=== PATIENT | female | born 1980 | race Caucasian/White ===

== ENCOUNTER 2018-06-12 23:16 | Inpatient (IN) | payer OTHER ==
[~2018-06-12] VITALS: Ht 167.6 cm; Wt 129.7 kg
[2018-06-12 23:20] VITALS: BP_SYST 103
[2018-06-13] VITALS (15 sets, daily range): BP systolic 79–127
[2018-06-13 00:02] LABS: WHITE BLOOD COUNT (AUTO) 2.7 K/uL (4.8-10.8)
[2018-06-13 00:03] LABS: RED BLOOD CELL COUNT(AUTO) 1.74 MIL/uL (4.2-6.2)
[2018-06-13 00:04] LABS: HEMATOCRIT 19.4 % (36-48); HEMOGLOBIN 6.5 g/dL (12.0-16.0); MEAN CORPUSCULAR VOLUME 111 fL (79.0-98.0)
[2018-06-13 00:05] LABS: MEAN CORPUSCULAR HEMOGLOBIN 37 pg (27-31); MEAN CORPUSCULAR HGB CONC 34 % (32-36); PLATELET COUNT (AUTO) 75 K/uL (130-430); RED CELL DISTRIBUTION WIDTH 36.4 % (9.0-15.0)
[2018-06-13 00:20] LABS: CALCIUM 8.4 mg/dL (8.4-11.0); CREATININE 1.85 mg/dL (0.55-1.30); INR 1.9 (0.8-1.2); POTASSIUM 3.5 mmol/L (3.5-5.1); PROTHROMBIN TIME 19.1 SECS (9.5-12.5)
[2018-06-13 00:32] LABS: CORRECTED WHITE BLOOD COUNT 2.2 K/uL (4.5-11.0)
[2018-06-13 00:33] LABS: ATYPICAL LYMPHOCYTES % 0 % (0-0); BAND % (MANUAL) 6 % (0-6); LYMPHOCYTES % (MANUAL) 19 % (20-46); MONOCYTES % (MANUAL) 56 % (0-11)
[2018-06-13 00:36] LABS: BASOPHILS % (MANUAL) 0 % (0-2); EOSINOPHILS % (MANUAL) 6 % (0-7); METAMYELOCYTES % 6 % (0-0); MYELOCYTES % 2 % (0-0)
[2018-06-13 00:37] LABS: ALBUMIN 2.1 g/dL (3.4-4.8)
[2018-06-13] MEDS ORDERED: cefTRIAXone 1 GM IVPB PREMIX 50 ML IV ONE (00:45)
[2018-06-13] MEDS ORDERED: PRED20TA PO (01:18)
[2018-06-13] MEDS ORDERED: FURO-149 PO (01:18)
[2018-06-13] MEDS ORDERED: LEVO125T8 PO (01:18)
[2018-06-13] MEDS ORDERED: PRIM50TA27 PO (01:18)
[2018-06-13] MEDS ORDERED: BENZ-16 PO (01:18)
[2018-06-13] MEDS ORDERED: PROP10TA10 PO (01:18)
[2018-06-13] MEDS ORDERED: ADENOSINE 6MG/2ML VIAL IVP ONE ×2 (04:30)
[2018-06-13] MEDS ORDERED: ADENOSINE 6MG/2ML VIAL ONE (04:38)
[2018-06-13] MEDS ORDERED: DILTIAZEM HCL 25 MG/5 ML VIAL IVP ONE (04:45)
[2018-06-13] MEDS ORDERED: AMIODARONE HCL 150 MG in D5W 100 ML IV ONE ×2 (05:00→05:45)
[2018-06-13] MEDS ORDERED: AMIODARONE HCL 900 MG in D5W 482 ML IV SCH ×2 (05:00→05:30)
[2018-06-13] MEDS ORDERED: AMIODARONE HCL 150 MG/3ML VIAL ONE ×2 (05:05→05:30)
[2018-06-13] MEDS ORDERED: AMIODARONE HCL 900 MG/18 ML VIAL IV ONE (05:30)
[2018-06-13] MEDS ORDERED: NOREPINEPHRINE 4 MG/4 ML VIAL IV ONE (05:38)
[2018-06-13] MEDS ORDERED: NOREPINEPHRINE BITARTRATE 4 MG in D5W 246 ML IV PRN (05:45)
[2018-06-13] MEDS ORDERED: ONDANSETRON HCL 4 MG/2 ML VIAL IVP PRN (06:15)
[2018-06-13] MEDS ORDERED: HYDROcodone/ACETAMIN 10-325 MG TAB PO PRN (06:15)
[2018-06-13] MEDS ORDERED: ACETAMINOPHEN 325 MG TABLET PO PRN (06:15)
[2018-06-13] MEDS ORDERED: LORazepam 2 MG/ML VIAL IVP PRN ×2 (06:15→14:00)
[2018-06-13] MEDS ORDERED: HYDROcodone/ACETAMIN 5-325 MG TAB (NORCO/ VICODIN) PO PRN (06:15)
[2018-06-13 07:56] LABS: CALCIUM 8.2 mg/dL (8.4-11.0); CREATININE 2.27 mg/dL (0.55-1.30); POTASSIUM 3.6 mmol/L (3.5-5.1)
[2018-06-13 08:11] LABS: ALBUMIN 1.8 g/dL (3.4-4.8)
[2018-06-13] MEDS ORDERED: AMIODARONE HCL 150 MG/3ML VIAL IV ONE (08:12)
[2018-06-13 08:27] LABS: TOTAL BILIRUBIN 25.5 mg/dL (0.0-1.0)
[2018-06-13] MEDS ORDERED: COMMUNICATION ORDER XX ONE ×2 (08:30→14:00)
[2018-06-13] MEDS ORDERED: FUROSEMIDE 40 MG TABLET PO SCH (09:00)
[2018-06-13] MEDS ORDERED: PROPRANOLOL HCL 10 MG TABLET (INDERAL) PO SCH (09:00)
[2018-06-13] MEDS ORDERED: BENZONATATE 100 MG CAPSULE (TESSALON) PO SCH (09:00)
[2018-06-13] MEDS ORDERED: PREDNISONE 20 MG TABLET PO SCH (09:00)
[2018-06-13] MEDS ORDERED: PRIMIDONE 50 MG TABLET PO SCH (09:00)
[2018-06-13] MEDS ORDERED: LEVOTHYROXINE SODIUM 0.125 MG TABLET PO SCH (09:00)
[2018-06-13 09:32] LABS: WHITE BLOOD COUNT (AUTO) 17.9 K/uL (4.8-10.8)
[2018-06-13 09:33] LABS: MEAN CORPUSCULAR HEMOGLOBIN 38 pg (27-31); MEAN CORPUSCULAR HGB CONC 33 % (32-36); MEAN CORPUSCULAR VOLUME 116 fL (79.0-98.0); PLATELET COUNT (AUTO) 56 K/uL (130-430); RED BLOOD CELL COUNT(AUTO) 1.62 MIL/uL (4.2-6.2); RED CELL DISTRIBUTION WIDTH 37.6 % (9.0-15.0)
[2018-06-13 09:34] LABS: HEMOGLOBIN 6.1 g/dL (12.0-16.0)
[2018-06-13 09:35] LABS: HEMATOCRIT 18.7 % (36-48)
[2018-06-13 10:28] LABS: CORRECTED WHITE BLOOD COUNT 11.3 K/uL (4.5-11.0)
[2018-06-13 10:29] LABS: BAND % (MANUAL) 26 % (0-6); BASOPHILS % (MANUAL) 0 % (0-2); EOSINOPHILS % (MANUAL) 1 % (0-7); LYMPHOCYTES % (MANUAL) 19 % (20-46); METAMYELOCYTES % 12 % (0-0); MONOCYTES % (MANUAL) 7 % (0-11); MYELOCYTES % 1 % (0-0)
[2018-06-13] MEDS: NOREPINEPHRINE BITARTRATE 8 MG in D5W 242 ML IV PRN ×2 (10:32→13:58)
[2018-06-13] MEDS: PHENYLEPHRINE HCL 30 MG in NS 247 ML IV PRN ×3 (11:00→17:02)
[2018-06-13] MEDS ORDERED: AMPICILLIN SODIUM/SULBACTAM NA 3 GM in NS 100 ML IV SCH (11:00)
[2018-06-13] MEDS ORDERED: SODIUM BICARBONATE 8.4% JECT 50 MEQ/50 ML SYRINGE ONE ×2 (13:05→17:37)
[2018-06-13] MEDS ORDERED: MORPHINE 4 MG/ML INJ. SYRINGE IVP PRN (14:00)
[2018-06-13] MEDS ORDERED: PANTOPRAZOLE SODIUM 40 MG/VIAL (PROTONIX) IVP SCH (14:00)
[2018-06-13] MEDS ORDERED: ALBUTEROL SULFATE 0.083% 2.5 MG/3 ML VIAL.NEB INH PRN (14:00)
[2018-06-13] MEDS ORDERED: NACL 0.9% 1,000 ML IV SCH ×2 (14:00)
[2018-06-13] MEDS ORDERED: SODIUM BICARBONATE 8.4% JECT 100 MEQ in D5W 1,000 ML IV SCH (14:00)
[2018-06-13] MEDS ORDERED: IPRATROPIUM BROM 0.5 MG/2.5 ML VIAL.NEB (ATROVENT) INH PRN (14:00)
[2018-06-13] MEDS ORDERED: ALBUMIN HUMAN 5% 500 ML IV ONE (14:00)
[2018-06-13] MEDS ORDERED: HYDROCORTISONE SOD SUCC 100 MG/2 ML VIAL IVP SCH (14:00)
[2018-06-13] MEDS ORDERED: PHYTONADIONE 10 MG in NS 50 ML IV ONE (14:15)
[2018-06-13] MEDS ORDERED: PANTOPRAZOLE SODIUM 40 MG/VIAL (PROTONIX) ONE (14:30)
[2018-06-13] MEDS ORDERED: GENTAMICIN SULFATE IV ONE ×2 (14:30→15:15)
[2018-06-13] MEDS ORDERED: NS IV ONE ×2 (14:30→15:15)
[2018-06-13] MEDS ORDERED: GENTAMICIN IV ONE (14:30)
[2018-06-13 15:14] LABS: BILIRUBIN,URINE 3+ (NEGATIVE); BLOOD, URINE 2+ (NEGATIVE); CLARITY/URINE HAZY (CLEAR); COLOR,URINE AMBER (YELLOW); GLUCOSE,URINE TRACE (NEGATIVE); KETONES,URINE 1+ (NEGATIVE); LEUKOCYTE ESTERASE ,URINE TRACE (NEGATIVE); NITRITE, URINE POSITIVE (NEGATIVE); PROTEIN URINE 2+ (NEGATIVE)
[2018-06-13] MEDS ORDERED: NS IV SCH (15:15)
[2018-06-13] MEDS ORDERED: GENTAMICIN SULFATE IV SCH (15:15)
[2018-06-13 15:38] LABS: BACTERIA,URINE MANY /HPF (None Seen); MUCUS,URINE None Seen /LPF (None Seen)
[2018-06-13] MEDS ORDERED: SODIUM BICARBONATE 8.4% JECT 50 MEQ/50 ML SYRINGE IVP ONE (16:15)
[2018-06-13] MEDS ORDERED: EPINEPHrine JECT 1 MG/10 ML SYR IVP ONE (18:29)
[2018-06-13] MEDS ORDERED: ETOMIDATE 20 MG/ 10 ML VIAL (AMIDATE) IVP ONE (18:29)
[2018-06-13] MEDS ORDERED: SUCCINYLCHOLINE CHLORIDE 20 MG/ML(QUELICIN) IVP ONE (18:29)
[2018-06-13] MEDS ORDERED: IPRATROPIUM BROM 0.5 MG/2.5 ML VIAL.NEB (ATROVENT) INH SCH (19:00)
[2018-06-13] MEDS ORDERED: ALBUTEROL SULFATE 0.083% 2.5 MG/3 ML VIAL.NEB INH SCH (19:00)
[2018-06-13 20:40] LABS: URINE SODIUM, RANDOM 11 mmol/L (40-220)
[2018-06-13] MEDS ORDERED: MEROPENEM 500 MG in NS 50 ML IV SCH (22:00)
[2018-06-14] MEDS ORDERED: cefTRIAXone 1 GM in D5W 50 ML IV SCH ×2
== END 2018-06-13 18:30 | disposition expired | DRG 871 ==
LOC: SED 23:16 → STU 06-13 03:02 → SIC 06-13 04:01
PROVIDERS: ADMIT Preventive Medicine Preventive Medicine/Occupational Environmental Medicine; ATTEND Preventive Medicine Preventive Medicine/Occupational Environmental Medicine
PROC: 5A09357 Assistance with Respiratory Ventilation, Less than 24 Consecutive Hours, Continuous Positive Airway Pressure (ICD-10-PCS; principal; 2018-06-13)
PROC: 5A1935Z Respiratory Ventilation, Less than 24 Consecutive Hours (ICD-10-PCS; 2018-06-13)
PROC: 30233N1 Transfusion of Nonautologous Red Blood Cells into Peripheral Vein, Percutaneous Approach (ICD-10-PCS; 2018-06-13)
PROC: 5A12012 Performance of Cardiac Output, Single, Manual (ICD-10-PCS; 2018-06-13)
PROC: 0BH17EZ Insertion of Endotracheal Airway into Trachea, Via Natural or Artificial Opening (ICD-10-PCS; 2018-06-13)
DX: A41.50 Gram-negative sepsis, unspecified (principal); R65.21 Severe sepsis with septic shock; J96.00 Acute respiratory failure, unspecified whether with hypoxia or hypercapnia; D61.818 Other pancytopenia; D68.4 Acquired coagulation factor deficiency; E87.1 Hypo-osmolality and hyponatremia; E87.2 Acidosis; I13.0 Hypertensive heart and chronic kidney disease with heart failure and stage 1 through stage 4 chronic kidney disease, or unspecified chronic kidney disease; K92.2 Gastrointestinal hemorrhage, unspecified; L03.116 Cellulitis of left lower limb; N17.9 Acute kidney failure, unspecified; N39.0 Urinary tract infection, site not specified; D50.0 Iron deficiency anemia secondary to blood loss (chronic); E03.9 Hypothyroidism, unspecified; E11.22 Type 2 diabetes mellitus with diabetic chronic kidney disease; I46.9 Cardiac arrest, cause unspecified; E11.65 Type 2 diabetes mellitus with hyperglycemia; F17.210 Nicotine dependence, cigarettes, uncomplicated; I50.9 Heart failure, unspecified; E66.9 Obesity, unspecified; K70.10 Alcoholic hepatitis without ascites; K70.30 Alcoholic cirrhosis of liver without ascites; K72.90 Hepatic failure, unspecified without coma; W18.39XA Other fall on same level, initial encounter; S93.402A Sprain of unspecified ligament of left ankle, initial encounter; K76.0 Fatty (change of) liver, not elsewhere classified; N18.9 Chronic kidney disease, unspecified; Z98.891 History of uterine scar from previous surgery; Y93.89 Activity, other specified; Y92.89 Other specified places as the place of occurrence of the external cause; Y99.8 Other external cause status; Z88.5 Allergy status to narcotic agent
CPT/HCPCS: 36415; 36600; 71045; 73590-TC; 76770; 80053; 81000-TC; 82140-TC; 82570-TC; 82803-TC; 83605; 83880; 84302-TC; 84484; 85007; 85025; 85027; 85610-TC; 85730-TC; 86870; 86886; 86900; 86901; 86920; 87040-TC; 87070-TC; 87081; 87086; 87186-TC; 87205-TC; 92950; 93005; 93306; 94002; 96361; 96374; 96375; 99291; C1751; C9113; J0153; J0171; J0282; J0295; J0330; J0696; J1580; J1720; J2185; J2370; J3430; J3490; J7030; J7040; J7050; J7060; J7512; P9021; P9041